=== PATIENT | female | born 1995 | race African-American/Black ===

== ENCOUNTER → 2018-06-25 | Outpatient (CLI) | payer OTHER | LOC: OD 12:08 | PROVIDERS: ATTEND Nurse Practitioner Acute Care | DX: R30.0 Dysuria (principal) | CPT/HCPCS: 87086 ==

== ENCOUNTER 2018-08-22 18:18 | Emergency (ER) | payer OTHER ==
[2018-08-22 18:27] VITALS: BP 117/64
[2018-08-22] MEDS ORDERED: PROMETHAZINE HCL 25 MG TABLET PO ONE (19:14)
--- NOTE | 2018-08-22 19:15 | ER Document Report ---
ED Medical Screen (RME) - General Chief Complaint: Abdominal Pain Stated Complaint: ABDOMINAL PAIN Time Seen by Provider: 08/22/18 19:12 Primary Care Provider: JUNIE LOPEZ NP [Primary Care Provider] - Follow up as needed Mode of Arrival: Ambulatory Information source: Patient Notes: Patient presents complaining of nausea with spitting up daily. Patient states today she noticed some blood in her emesis. Patient states she has had some right lower pelvic tenderness that started today. Patient is currently about 6 weeks G3, P2. I have greeted and performed a rapid initial assessment of this patient. A comprehensive ED assessment and evaluation of the patient, analysis of test results and completion of the medical decision making process will be conducted by additional ED providers. TRAVEL OUTSIDE OF THE [place] IN LAST 30 DAYS: No - Related Data Allergies/Adverse Reactions: No Known Allergies Allergy (Verified 08/22/18 18:20) Past Medical History - Social History Chew tobacco use (# tins/day): No Frequency of alcohol use: None Drug Abuse: None Renal/ Medical History: Denies: Hx Peritoneal Dialysis Physical Exam - Vital signs Vitals: Temp Pulse Resp BP Pulse Ox 99.0 F 78 15 117/64 99 08/22/18 18:25 08/22/18 18:25 08/22/18 18:25 08/22/18 18:25 08/22/18 18:25 - Abdominal Inspection: Normal Tenderness: Tender - Right lower pelvic Course - Vital Signs Vital signs: Temp Pulse Resp BP Pulse Ox 99.0 F 78 15 117/64 99 08/22/18 18:25 08/22/18 18:25 08/22/18 18:25 08/22/18 18:25 08/22/18 18:25 Doctor's Discharge - Discharge Referrals: JUNIE LOPEZ NP [Primary Care Provider] - Follow up as needed
[2018-08-22 20:03] LABS: ABSOLUTE BASOPHILS # (AUTO) 0.1 10^3/uL (0.0-0.2); ABSOLUTE EOSINOPHILS # (AUTO) 0.2 10^3/uL (0.0-0.6); ABSOLUTE LYMPHOCYTES (AUTO) 2.4 10^3/uL (0.5-4.7); ABSOLUTE MONOCYTES (AUTO) 0.6 10^3/uL (0.1-1.4); ABSOLUTE NEUT (AUTO) 5.9 10^3/uL (1.7-8.2); BASOPHILS % (AUTO) 0.7 % (0-2); EOSINOPHILS % (AUTO) 2.5 % (0-6); HEMATOCRIT 37.5 % (36.0-47.0); HEMOGLOBIN 12.5 g/dL (12.0-15.5); LYMPHOCYTES % (AUTO) 26.2 % (13-45); MEAN CORPUSCULAR HEMOGLOBIN 29.1 pg (27.0-33.4); MEAN CORPUSCULAR HGB CONC 33.3 g/dL (32.0-36.0); MEAN CORPUSCULAR VOLUME 87 fl (80-97); PLATELET COUNT 226 10^3/uL (150-450); RED BLOOD COUNT 4.29 10^6/uL (3.72-5.28); SEGMENTED NEUTROPHILS % (AUTO) 63.6 % (42-78); TOTAL CELLS COUNTED % (AUTO) 100 %; WHITE BLOOD COUNT 9.2 10^3/uL (4.0-10.5)
[2018-08-22 20:28] LABS: ALANINE AMINOTRANSFERASE 31 U/L (9-52); ALBUMIN 4.4 g/dL (3.5-5.0); ALKALINE PHOSPHATASE 40 U/L (38-126); ANION GAP 9 (5-19); ASPARTATE AMINO TRANSFERASE 26 U/L (14-36); BILIRUBIN,DIRECT 0.2 mg/dL (0.0-0.4); BILIRUBIN,TOTAL 0.4 mg/dL (0.2-1.3); BLOOD UREA NITROGEN 8 mg/dL (7-20); CALCIUM 9.5 mg/dL (8.4-10.2); CARBON DIOXIDE 27 mmol/L (22-30); CHLORIDE 102 mmol/L (98-107); GLUCOSE 71 mg/dL (75-110); LIPASE 114.8 U/L (23-300); POTASSIUM 3.6 mmol/L (3.6-5.0); SODIUM 137.9 mmol/L (137-145); TOTAL PROTEIN 7.1 g/dL (6.3-8.2)
[2018-08-22 20:43] LABS: APPEARANCE,URINE CLOUDY; BILIRUBIN,URINE NEGATIVE (NEGATIVE); CALCIUM OXALATE CRYSTALS,URINE FEW /HPF; COLOR,URINE YELLOW; GLUCOSE, URINE NEGATIVE (NEGATIVE); KETONES,URINE NEGATIVE (NEGATIVE); LEUKOCYTE ESTERASE,URINE MODERATE (NEGATIVE); NITRITE,URINE NEGATIVE (NEGATIVE); PROTEIN,URINE NEGATIVE (NEGATIVE); URINE SPECIFIC GRAVITY 1.019; UROBILINOGEN,URINE NEGATIVE mg/dL (<2.0)
[2018-08-22 22:06] LABS: CHLAM PCR NOT DETECTED (NOT DETECT); GON PCR NOT DETECTED (NOT DETECT)
--- NOTE | 2018-08-22 23:40 | RADIOLOGY REPORT (SQ) ---
CLINICAL HISTORY: R lower pelvic pain COMPARISON: None. TECHNIQUE: US TRANSVAGINAL on 08/22/2018 7:13 PM CDT FINDINGS: Uterus measures 9.4 cm. There is an intrauterine gestational sac with a yolk sac and a pole measuring 0.56 cm, corresponding to six weeks two days. heart rate is 120 beats per minute. Ovaries are unremarkable with patent flow. IMPRESSION: Single live intrauterine gestation.
--- NOTE | 2018-08-23 08:24 | ER Document Report ---
Entered by REANNA ORELLANA SCRIBE 08/22/18 [id number] Acting as scribe for:ELIO MONTALVO DO ED GI/ - General Chief Complaint: Abdominal Pain Stated Complaint: ABDOMINAL PAIN Time Seen by Provider: 08/22/18 19:12 Primary Care Provider: [facility] [Provider Group] - Follow up as needed JUNIE LOPEZ, [employer] HELPER [NURSE PRACTITIONER] - Follow up as needed Mode of Arrival: Ambulatory Notes: Patient is a 23-year-old female that presents to the emergency department today with complaints of nausea and vomiting. Patient states that she is approximately 6 weeks , , and has had nausea throughout her however today she began vomiting and noticed bloody streaks in her vomit. Patient also mentions lower abdominal pain that she describes as sharp and constant. Patient denies any urinary symptoms. TRAVEL OUTSIDE OF THE [place] IN LAST 30 DAYS: No - Related Data Allergies/Adverse Reactions: No Known Allergies Allergy (Verified 08/22/18 18:20) Past Medical History - General Information source: Patient - Social History Smoking Status: Never Smoker Cigarette use (# per day): No Chew tobacco use (# tins/day): No Family History: Reviewed & Not Pertinent Patient has suicidal ideation: No Patient has homicidal ideation: No Review of Systems - Review of Systems Constitutional: No symptoms reported EENT: No symptoms reported Cardiovascular: No symptoms reported Respiratory: No symptoms reported Gastrointestinal: See HPI, Abdominal pain, Nausea, Vomiting, Blood in vomit Genitourinary: No symptoms reported Female Genitourinary: See HPI, Musculoskeletal: No symptoms reported Skin: No symptoms reported Hematologic/Lymphatic: No symptoms reported Neurological/Psychological: No symptoms reported -: Yes All other systems reviewed and negative Physical Exam - Vital signs Vitals: Temp Pulse Resp BP Pulse Ox 99.0 F 78 15 117/64 99 08/22/18 18:25 08/22/18 18:25 08/22/18 18:25 08/22/18 18:25 08/22/18 18:25 - Notes Notes: PHYSICAL EXAM GENERAL: Alert, interacts well. No acute distress. HEAD: Normocephalic, atraumatic. EYES: Pupils equal, round, and reactive to light. Extraocular movements intact. ENT: Oral mucosa moist, tongue midline. NECK: Full range of motion. Supple. Trachea midline. LUNGS: Clear to auscultation bilaterally, no wheezes, rales, or rhonchi. No respiratory distress. HEART: Regular rate and rhythm. No murmurs, gallops, or rubs. ABDOMEN: Epigastric tenderness to palpation. Non-distended. Bowel sounds present in all 4 quadrants. No guarding, rigidity, or rebound. EXTREMITIES: Moves all 4 extremities spontaneously. No edema, radial and dorsalis pedis pulses 2/4 bilaterally. No cyanosis. NEUROLOGICAL: Alert and oriented x3. Normal speech. PSYCH: Normal affect, normal mood. SKIN: Warm, dry, normal turgor. No rashes or lesions noted. Course - Re-evaluation Re-evalutation: 08/22/18 23:43 Single intrauterine gestational sac with a yolk sac and pole, 6 weeks and 2 days, heart rate is 120 bpm, ovaries are unremarkable. CBC unremarkable, no anemia, CMP unremarkable, lipase normal, urinalysis shows moderate leukocyte esterase but 17 squamous epithelial cells, suspect contamination. She has no symptoms of UTI, this will not be treated. Gonorrhea and Chlamydia are negative. Patient likely has Keyla-Jackson tears related to nausea and vomiting of . Patient will be prescribed Zofran, Phenergan and likely just for use at home. Discharged to home. - Vital Signs Vital signs: Temp Pulse Resp BP Pulse Ox 99.0 F 78 15 117/64 99 08/22/18 18:25 08/22/18 18:25 08/22/18 18:25 08/22/18 18:25 08/22/18 18:25 - Laboratory Result Diagrams: 08/22/18 19:43 08/22/18 19:43 Laboratory results interpreted by me: 08/22/18 08/22/18 08/22/18 19:35 19:43 19:43 RDW 16.0 H Glucose 71 L Beta HCG, Quant 55876.00 H Ur Leukocyte Esterase MODERATE H Discharge - Discharge Clinical Impression: First trimester , Nausea and vomiting during Hematemesis Qualifiers: Nausea presence: with nausea Qualified Code(s): K92.0 - Hematemesis Condition: Stable Disposition: HOME, SELF-CARE Additional Instructions: You are . care is best started as early in as possible. You should take only medications approved by your physician. Acetaminophen can safely be taken for minor pains. As a rule, medication for chronic conditions such as asthma or seizures can safely be continued. You should discuss with the physician every medicine you take. Any regular exercise program can be continued. Talk to your physician, however, before engaging in competitive or demanding sports. Alcohol, smoking, and "street drugs" are dangerous to your baby. Cocaine is especially dangerous. Don't use any illicit drugs! Small streaks of blood in your vomit are likely coming from straining your throat while vomiting frequently. We should be able to decrease the blood by decreasing the vomiting. Please try the Diclegis first and then if that doesn't work you may use the Zofran and Phenergan on an as needed basis according to the directions. Prescriptions: Doxylamine Succinate/Vit B6 [Diclegis Dr 10-10 mg Tablet] 1 each PO QHS #20 tablet. Ondansetron [Zofran Odt 4 mg Tablet] 1 - 2 tab PO Q4HP PRN #10 tab.rapdis PRN Reason: Promethazine HCl [Phenergan 25 mg Tablet] 25 mg PO Q4HP PRN #20 tablet PRN Reason: Referrals: [facility] [Provider Group] - Follow up as needed JUNIE LOPEZ, [employer] HELPER [NURSE PRACTITIONER] - Follow up as needed I personally performed the services described in the documentation, reviewed and edited the documentation which was dictated to the scribe in my presence, and it accurately records my words and actions.
== END 2018-08-23 01:27 | disposition home or self-care (01) ==
LOC: ER 18:18
DX: O21.8 Other vomiting complicating pregnancy (principal); K92.0 Hematemesis; R10.9 Unspecified abdominal pain; Z3A.01 Less than 8 weeks gestation of pregnancy
CPT/HCPCS: 36415; 76817; 80053; 81001; 83690; 84702; 85025; 87491; 87591; 99284

== ENCOUNTER 2018-09-05 15:21 | Emergency (ER) | payer OTHER ==
[2018-09-05 16:03] VITALS: BP 121/72
== END 2018-09-05 17:00 | disposition left against medical advice (07) ==
LOC: ER 15:21
DX: Z53.21 Procedure and treatment not carried out due to patient leaving prior to being seen by health care provider (principal)

== ENCOUNTER 2018-10-18 15:11 | Emergency (ER) | payer OTHER ==
[2018-10-18 15:17] VITALS: BP 114/65
--- NOTE | 2018-10-18 15:29 | ER Document Report ---
ED Medical Screen (RME) - General Chief Complaint: OB Problem (<20wks) Stated Complaint: VAGINAL BLEEDING Time Seen by Provider: 10/18/18 15:24 Mode of Arrival: Ambulatory Information source: Patient Notes: Patient presents emergency department with complaints of vaginal bleeding. Patient reports she is G3, P2 approximately 14 weeks. Reported she had some pink tinge bleeding on . No bleeding the next day on Saturday. And today she is bleeding more to the point where she has had to wear pad. She does complain of pelvic pain. Complains of low abdominal pain. Denies pain with void. Denies trauma. Denies other symptoms such as fever vomiting but reports she has had some diarrhea since the fourth. I have greeted and performed a rapid initial assessment of this patient. A comprehensive ED assessment and evaluation of the patient, analysis of test results and completion of the medical decision making process will be conducted by additional ED providers. Dictation of this chart was performed using voice recognition software; therefore, there may be some unintended grammatical errors. TRAVEL OUTSIDE OF THE [place] IN LAST 30 DAYS: No - Related Data Allergies/Adverse Reactions: No Known Allergies Allergy (Verified 10/18/18 15:12) Past Medical History - Social History Chew tobacco use (# tins/day): No Frequency of alcohol use: None Drug Abuse: None Renal/ Medical History: Denies: Hx Peritoneal Dialysis Physical Exam - Vital signs Vitals: Temp Pulse Resp BP Pulse Ox 98.5 F 86 18 114/65 100 10/18/18 15:15 10/18/18 15:15 10/18/18 15:15 10/18/18 15:15 10/18/18 15:15 Course - Vital Signs Vital signs: Temp Pulse Resp BP Pulse Ox 98.5 F 86 18 114/65 100 10/18/18 15:15 10/18/18 15:15 10/18/18 15:15 10/18/18 15:15 10/18/18 15:15
[2018-10-18 16:00] LABS: ABSOLUTE EOSINOPHILS # (AUTO) 0.2 10^3/uL (0.0-0.6); ABSOLUTE LYMPHOCYTES (AUTO) 1.7 10^3/uL (0.5-4.7); ABSOLUTE MONOCYTES (AUTO) 0.8 10^3/uL (0.1-1.4); BASOPHILS % (AUTO) 0.5 % (0-2); EOSINOPHILS % (AUTO) 1.9 % (0-6); HEMATOCRIT 35.6 % (36.0-47.0); LYMPHOCYTES % (AUTO) 17.6 % (13-45); MEAN CORPUSCULAR HEMOGLOBIN 29.8 pg (27.0-33.4); MEAN CORPUSCULAR HGB CONC 33.8 g/dL (32.0-36.0); MEAN CORPUSCULAR VOLUME 88 fl (80-97); MONOCYTES % (AUTO) 8.1 % (3-13); PLATELET COUNT 260 10^3/uL (150-450); RED BLOOD COUNT 4.04 10^6/uL (3.72-5.28); RED CELL DISTRIBUTION WIDTH 15.9 % (11.5-14.0); SEGMENTED NEUTROPHILS % (AUTO) 71.9 % (42-78); TOTAL CELLS COUNTED % (AUTO) 100 %; WHITE BLOOD COUNT 9.7 10^3/uL (4.0-10.5)
[2018-10-18 16:12] LABS: AMORPHOUS SEDIMENT,URINE 1+ /HPF
[2018-10-18 16:17] LABS: ALANINE AMINOTRANSFERASE 18 U/L (9-52); ALBUMIN 4.1 g/dL (3.5-5.0); ALKALINE PHOSPHATASE 44 U/L (38-126); ANION GAP 9 (5-19); APPEARANCE,URINE CLOUDY; ASPARTATE AMINO TRANSFERASE 21 U/L (14-36); BILIRUBIN,DIRECT 0.1 mg/dL (0.0-0.4); BILIRUBIN,TOTAL 0.1 mg/dL (0.2-1.3); BILIRUBIN,URINE NEGATIVE (NEGATIVE); BLOOD UREA NITROGEN 8 mg/dL (7-20); CALCIUM 9.5 mg/dL (8.4-10.2); CARBON DIOXIDE 26 mmol/L (22-30); CHLORIDE 103 mmol/L (98-107); COLOR,URINE YELLOW; GLUCOSE, URINE NEGATIVE (NEGATIVE); KETONES,URINE NEGATIVE (NEGATIVE); POTASSIUM 3.9 mmol/L (3.6-5.0); TOTAL PROTEIN 6.9 g/dL (6.3-8.2)
[2018-10-18 16:18] LABS: LEUKOCYTE ESTERASE,URINE TRACE (NEGATIVE); NITRITE,URINE NEGATIVE (NEGATIVE); PROTEIN,URINE 30 mg/dL (NEGATIVE); URINE SPECIFIC GRAVITY 1.028
[2018-10-18 16:20] LABS: GLUCOSE 61 mg/dL (75-110)
--- NOTE | 2018-10-18 18:07 | ER Document Report ---
ED GI/ - General Chief Complaint: OB Problem (<20wks) Stated Complaint: VAGINAL BLEEDING Time Seen by Provider: 10/18/18 15:24 Mode of Arrival: Ambulatory Information source: Patient TRAVEL OUTSIDE OF THE [place] IN LAST 30 DAYS: No - HPI Patient complains to provider of: Vaginal bleeding Onset: Other - Ongoing for the past 3 days. Timing/Duration: Sudden, Constant, Worse Quality of pain: No pain Pain Level: Denies Location: Vaginal Vaginal bleeding (Compared to normal period): Heavier Menstrual period history: OB ultrasound done: Yes Sexual history: Active, Unprotected intercourse Associated symptoms: Diarrhea Exacerbated by: Denies Relieved by: Denies Similar symptoms previously: Yes Recently seen / treated by doctor: No - Related Data Allergies/Adverse Reactions: No Known Allergies Allergy (Verified 10/18/18 15:12) Past Medical History - General Information source: Patient - Social History Smoking Status: Never Smoker Chew tobacco use (# tins/day): No Frequency of alcohol use: None Drug Abuse: None Family History: Reviewed & Not Pertinent Patient has suicidal ideation: No Patient has homicidal ideation: No Renal/ Medical History: Denies: Hx Peritoneal Dialysis Review of Systems - Review of Systems Constitutional: No symptoms reported EENT: No symptoms reported Cardiovascular: No symptoms reported Respiratory: No symptoms reported Gastrointestinal: Diarrhea Genitourinary: No symptoms reported Female Genitourinary: , Vaginal bleeding. denies: Vaginal discharge Musculoskeletal: No symptoms reported Skin: No symptoms reported Hematologic/Lymphatic: No symptoms reported Neurological/Psychological: No symptoms reported -: Yes All other systems reviewed and negative Physical Exam - Vital signs Vitals: Temp Pulse Resp BP Pulse Ox 98.5 F 86 18 114/65 100 10/18/18 15:15 10/18/18 15:15 10/18/18 15:15 10/18/18 15:15 10/18/18 15:15 Interpretation: Normal - General General appearance: Appears well, Alert - HEENT Head: Normocephalic, Atraumatic Eyes: Normal Pupils: PERRL - Respiratory Respiratory status: No respiratory distress Chest status: Nontender Breath sounds: Normal Chest palpation: Normal - Cardiovascular Rhythm: Regular Heart sounds: Normal auscultation Murmur: No - Abdominal Inspection: Normal Distension: No distension Bowel sounds: Normal Tenderness: Nontender Organomegaly: No organomegaly - Back Back: Normal, Nontender - Extremities General upper extremity: Normal inspection, Nontender, Normal color, Normal ROM, Normal temperature General lower extremity: Normal inspection, Nontender, Normal color, Normal ROM, Normal temperature, Normal weight bearing. No: Jonathan's sign - Neurological Neuro grossly intact: Yes Cognition: Normal Orientation: AAOx4 [place] Coma Scale Eye Opening: Spontaneous Jakob Coma Scale Verbal: Oriented [place] Coma Scale Motor: Obeys Commands [place] Coma Scale Total: 15 Speech: Normal Motor strength normal: LUE, RUE, LLE, RLE Sensory: Normal - Psychological Associated symptoms: Normal affect, Normal mood - Skin Skin Temperature: Warm Skin Moisture: Dry Skin Color: Normal Course - Re-evaluation Re-evalutation: 10/18/18 21:16 Patient eloped from the ED after having ultrasound. She did not notify anybody prior to leaving the ED. - Vital Signs Vital signs: Temp Pulse Resp BP Pulse Ox 98.5 F 86 18 114/65 100 10/18/18 15:15 10/18/18 15:15 10/18/18 15:15 10/18/18 15:15 10/18/18 15:15 - Laboratory Result Diagrams: 10/18/18 15:19 10/18/18 15:19 Laboratory results interpreted by me: 10/18/18 10/18/18 10/18/18 15:19 15:19 15:19 Hct 35.6 L RDW 15.9 H Creatinine 0.47 L Glucose 61 L Total Bilirubin 0.1 L Urine Protein 30 H Urine Blood MODERATE H Urine Urobilinogen 2.0 H Ur Leukocyte Esterase TRACE H Urine Ascorbic Acid 40 H - Diagnostic Test Radiology reviewed: Reports reviewed Discharge - Discharge Clinical Impression: Vaginal bleeding before 22 weeks gestation Condition: Stable Disposition: ELOPED
--- NOTE | 2018-10-18 19:38 | RADIOLOGY REPORT (SQ) ---
EXAM DESCRIPTION: U/S OB LIMITED COMPLETED DATE/TIME: 10/18/2018 7:09 pm REASON FOR STUDY: abd cramp, bleeding COMPARISON: None. TECHNIQUE: Limited transabdominal grayscale ultrasound for evaluation of specific requested obstetri karlene parameters. LIMITATIONS: None. FINDINGS: CERVICAL LENGTH: 3.9 cm Closed. FHR: 141 beats per minute. PRESENTATION: Transverse. PLACENTA: Anterior. EGA: 15 weeks 2 days. EDC: . BPD: 2.9 cm consistent with gestational age 15 weeks 3 days. HC: 10.5 cm consistent with gestational age 15 weeks. AC: 9.3 cm consistent with gestational age 1 5 weeks 3 days. FL: 1.8 cm consistent with gestational age 15 weeks 3 days. IMPRESSION: LIMITED OBSTETRICAL ULTRASOUND WITH MEASURED PARAMETERS DELINEATED ABOVE. Trimester of : Second trimester - 13 weeks 1 day to 27 weeks 6 days. TECHNICAL DOCUMENTATION: JOB ID: [id number] 2010 [employer]- All Rights Reserved Reading location - IP/workstation name: [email or web address]
== END 2018-10-18 19:55 | disposition left against medical advice (07) ==
LOC: ER 15:11
DX: O20.9 Hemorrhage in early pregnancy, unspecified (principal); R19.7 Diarrhea, unspecified; R10.30 Lower abdominal pain, unspecified; Z3A.14 14 weeks gestation of pregnancy
CPT/HCPCS: 36415; 76815; 80053; 81001; 85025; 86900; 86901; 99281

== ENCOUNTER 2019-01-09 13:37 | Emergency (ER) | payer OTHER ==
[2019-01-09 13:46] VITALS: BP 121/61
--- NOTE | 2019-01-09 14:53 | ER Document Report ---
ED Medical Screen (RME) - General Stated Complaint: BLURRED VISION,CONGESTION Time Seen by Provider: 01/09/19 14:50 Notes: Patient is a 23-year-old female who presents the emergency department with a chief complaint of blurry vision. She denies any blurry vision at this time, but states that when she stood up this morning she felt dizzy. She is currently . She states that she is wearing glasses, but does not wear glasses at this time. She also has some congestion. Patient states that she takes her vitamins and is being seen for care. Exam: TALIB. I have greeted and performed a rapid initial assessment of this patient. A comprehensive ED assessment and evaluation of the patient, analysis of test results and completion of medical decision making process will be conducted by an additional ED providers. TRAVEL OUTSIDE OF THE [place] IN LAST 30 DAYS: No - Related Data Allergies/Adverse Reactions: No Known Allergies Allergy (Verified 10/20/18 14:36) Past Medical History Renal/ Medical History: Denies: Hx Peritoneal Dialysis Physical Exam - Vital signs Vitals: Temp Pulse Resp BP Pulse Ox 98.3 F 77 23 H 121/61 94 01/09/19 13:44 01/09/19 13:44 01/09/19 13:44 01/09/19 13:44 01/09/19 13:44 Course - Vital Signs Vital signs: Temp Pulse Resp BP Pulse Ox 98.3 F 77 23 H 121/61 94 01/09/19 13:44 01/09/19 13:44 01/09/19 13:44 01/09/19 13:44 01/09/19 13:44
[2019-01-09] MEDS ORDERED: NORMAL SALINE 1000 ML 1,000 ML IV ONE (15:21)
[2019-01-09] MEDS ORDERED: ACETAMINOPHEN 325 MG TABLET PO ONE (15:22)
--- NOTE | 2019-01-09 15:26 | ER Document Report ---
ED General - General Chief Complaint: Vision Problem Stated Complaint: BLURRED VISION,CONGESTION Time Seen by Provider: 01/09/19 14:50 Notes: Patient is a 23-year-old who presents to emergency department with a chief complaint of sinus pressure and blurred vision. Patient states she woke up from a nap around 11 AM with the blurred vision. Patient reports she is supposed to wear glasses but does not currently wear glasses or contact lenses. Patient reports she has had a sore throat for the past 3 days. Patient reports sinus pressure in the middle of her eyes. Patient denies headache. Patient reports having nausea and 2 episodes of vomiting yesterday. Patient reports she has not attempted to eat or drink anything today as she did not feel well. Patient states she does have care at the [facility]. Patient denies abdominal pain, vaginal bleeding or discharge. Patient reports she is 26 weeks and 3 days . TRAVEL OUTSIDE OF THE [place] IN LAST 30 DAYS: No - Related Data Allergies/Adverse Reactions: No Known Allergies Allergy (Verified 10/20/18 14:36) Past Medical History - General Information source: Patient - Social History Smoking Status: Never Smoker Frequency of alcohol use: None Drug Abuse: None Lives with: Family Family History: Reviewed & Not Pertinent Patient has suicidal ideation: No Patient has homicidal ideation: No - Past Medical History Cardiac Medical History: Reports: None Pulmonary Medical History: Reports: None EENT Medical History: Reports: None Neurological Medical History: Reports: None Endocrine Medical History: Reports: None Renal/ Medical History: Reports: None. Denies: Hx Peritoneal Dialysis Malignancy Medical History: Reports: None GI Medical History: Reports: None Musculoskeletal Medical History: Reports None Skin Medical History: Reports None Psychiatric Medical History: Reports: None Traumatic Medical History: Reports: None Infectious Medical History: Reports: None Review of Systems - Review of Systems Constitutional: No symptoms reported EENT: See HPI Cardiovascular: No symptoms reported Respiratory: No symptoms reported Gastrointestinal: See HPI Genitourinary: No symptoms reported Female Genitourinary: No symptoms reported Musculoskeletal: No symptoms reported Skin: No symptoms reported Hematologic/Lymphatic: No symptoms reported Neurological/Psychological: No symptoms reported Physical Exam - Vital signs Vitals: Temp Pulse Resp BP Pulse Ox 98.3 F 77 23 H 121/61 94 01/09/19 13:44 01/09/19 13:44 01/09/19 13:44 01/09/19 13:44 01/09/19 13:44 - Notes Notes: GENERAL: Well-appearing, well-nourished and in no acute distress. HEAD: Atraumatic, normocephalic. EYES: Pupils equal round and reactive to light, extraocular movements intact, sclera anicteric, conjunctiva are normal. ENT: TMs normal, nares patent, oropharynx clear without exudates. Moist mucous membranes. Petechiae noted to the upper hard palate. NECK: Normal range of motion, supple without lymphadenopathy or JVD. LUNGS: Breath sounds clear to auscultation bilaterally and equal. No wheezes rales or rhonchi. HEART: Regular rate and rhythm without murmurs, rubs or gallops. ABDOMEN: Soft, nontender, normoactive bowel sounds. No guarding, no rebound. No masses appreciated. BACK: No cervical, thoracic, lumbar midline tenderness. No saddle anesthesia, normal distal neurovascular exam. GENITOURINARY: Deferred. EXTREMITIES: Normal range of motion, no pitting or edema. No clubbing or cyanosis. NEUROLOGICAL: Cranial nerves II through XII grossly intact. Normal speech, normal gait. PSYCH: Normal mood, normal affect. SKIN: Warm, Dry, normal turgor, no rashes or lesions noted. - HEENT Visual acuity- Right eye: 20/20 Visual acuity- Left eye: 20/20 Visual acuity- Both eyes: 20/20 Course - Re-evaluation Re-evalutation: 01/09/19 15:25 Patient's visual acuity is unremarkable. Will obtain a strep test and basic labs. We will give the patient IV fluids as she reports episodes of vomiting and not eating today. Patient is nontoxic-appearing and is not tachycardic, hypotensive or febrile. 01/09/19 15:57 Nursing staff reports that the patient had to leave to go take care of her children and was not able to stay for blood work. I did not see the patient prior to discharge. - Vital Signs Vital signs: Temp Pulse Resp BP Pulse Ox 98.3 F 77 23 H 121/61 94 01/09/19 13:44 01/09/19 13:44 01/09/19 13:44 01/09/19 13:44 01/09/19 13:44 Discharge - Discharge Clinical Impression: Blurred vision, bilateral, Facial pain, Sore throat Disposition: ELOPED
== END 2019-01-09 15:59 | disposition left against medical advice (07) ==
LOC: ER 13:37
DX: H53.8 Other visual disturbances (principal); J02.9 Acute pharyngitis, unspecified; R51 Headache
CPT/HCPCS: 99281